=== PATIENT | male | born 1950 | race Caucasian/White ===

== ENCOUNTER 2025-06-25 10:14 | Day surgery (SDC) | payer MEDICARE, OTHER ==
[2025-06-18] MEDS: CEFUROXIME 1 MG/0.1 ML INTRACAMERAL INJ As Ordered ONE (07:00)
[2025-06-18] MEDS: LIDOCAINE 1% SDV 5 ML VIAL As Ordered ONE (07:00)
[~2025-06-25] VITALS: Ht 182.9 cm; Wt 95.2 kg
[~2025-06-25 10:14] MED LIST: CYCLOPENTOLATE 1% OPHTH SOLN 2 ML BTL OD SCH; ECOT81TA5 PO; FLURBIPROFEN 0.03% OPHTH SOLN 2.5 ML OD SCH; LEVO50TA5 PO; LISI10TA24 PO; LR 1,000 ML IV SCH; METF-838 PO; OMEP-173 PO; PHENYLEPHRINE 2.5% OPHTH SOL 2ML OD SCH; PRAZ2CAP PO; SIMV40TA20 PO; TETRACAINE 0.5% OPHTH SOLN 4ML OD SCH; VITA100093 PO
[2025-06-25] MEDS: PHENYLEPHRINE 2.5% OPHTH SOL 2ML OD SCH (13:08)
[2025-06-25] MEDS: CYCLOPENTOLATE 1% OPHTH SOLN 2 ML BTL OD SCH (13:08)
[2025-06-25] MEDS: FLURBIPROFEN 0.03% OPHTH SOLN 2.5 ML OD SCH (13:08)
[2025-06-25] MEDS: TETRACAINE 0.5% OPHTH SOLN 4ML OD SCH (13:08)
[2025-06-25] MEDS ORDERED: MIDAZOLAM INJ 2 MG/2 ML VIAL As Ordered ONE (13:51)
[2025-06-25 15:10] VITALS: BP 151/83; TEMP 98; O2SAT 94
== END 2025-06-25 15:37 | disposition home or self-care (01) ==
LOC: M SDC 10:14
PROVIDERS: ATTEND Ophthalmology
DX: E11.36 Type 2 diabetes mellitus with diabetic cataract (principal); H25.11 Age-related nuclear cataract, right eye; I10 Essential (primary) hypertension; E11.40 Type 2 diabetes mellitus with diabetic neuropathy, unspecified; E03.9 Hypothyroidism, unspecified; Z79.84 Long term (current) use of oral hypoglycemic drugs; Z79.890 Hormone replacement therapy; Z79.899 Other long term (current) drug therapy; E78.00 Pure hypercholesterolemia, unspecified; K21.9 Gastro-esophageal reflux disease without esophagitis; Z90.49 Acquired absence of other specified parts of digestive tract
CPT/HCPCS: 66984; 93005; J0697; J2250; J3010; V2632